=== PATIENT | female | born 1990 | race Asian ===

== ENCOUNTER → 2023-06-14 | Outpatient (REF) | LOC: M LAB 15:37 | PROVIDERS: ATTEND Nurse Practitioner Adult Health | DX: Z00.00 Encounter for general adult medical examination without abnormal findings (principal) ==

== ENCOUNTER → 2024-04-24 | Outpatient (REF) | LOC: M EMP 11:51 | PROVIDERS: ATTEND Family Medicine | DX: Z11.52 Encounter for screening for COVID-19 (principal) ==